=== PATIENT | male | born 1995 | race Caucasian/White ===

== ENCOUNTER 2023-03-11 16:50 | Emergency (ER) | payer MEDICAID ==
[~2023-03-11] VITALS: Ht 180.3 cm; Wt 82.6 kg
[2023-03-11 18:21] VITALS: BP 137/95; TEMP 98.9; O2SAT 100
[2023-03-11] MEDS ORDERED: GUAIFENESIN/CODEINE 10 ML UDC ONE (20:53)
[2023-03-11] MEDS ORDERED: BENZONATATE 100 MG CAPSULE PO ONE (20:53)
[2023-03-11] MEDS ORDERED: BENZONATATE 100 MG CAPSULE PO PRN (21:00)
[2023-03-11] MEDS ORDERED: GUAIFENESIN/CODEINE 10 ML UDC PO PRN (21:00)
[2023-03-11] MEDS ORDERED: BENZ-13 PO (21:14)
[2023-03-11] MEDS ORDERED: PSEU120T57 PO (21:14)
== END 2023-03-11 21:25 | disposition home or self-care (01) ==
LOC: ER 16:59
DX: J06.9 Acute upper respiratory infection, unspecified (principal); R05.9 Cough, unspecified; J02.9 Acute pharyngitis, unspecified